=== PATIENT | male | born 1950 ===

== ENCOUNTER 2017-04-08 16:50 | Emergency (ER) | payer OTHER ==
[2017-04-08 17:46] VITALS: BP 133/70; PULSE 65; RESP 18; TEMP 97.8; O2SAT 97
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
--- NOTE | 2017-04-09 08:41 | RAD ---
PROCEDURE: Cervical Spine Radiographs. HISTORY: Pain. COMPARISON: None. FINDINGS: BONES: Alignment maintained. No fracture. Dens Intact. DISC SPACES: Degenerative changes and multilevel mild narrowing of the disc spaces noted. SOFT TISSUES: Normal. No prevertebral soft tissue swelling. OTHER FINDINGS: None. IMPRESSION: No radiographic evidence of acute fracture or subluxation. Degenerative changes.
== END 2017-04-08 19:16 | disposition home or self-care (01) ==
LOC: C.ER 16:50
DX: S13.4XXA Sprain of ligaments of cervical spine, initial encounter (principal); V43.52XA Car driver injured in collision with other type car in traffic accident, initial encounter; Y92.410 Unspecified street and highway as the place of occurrence of the external cause
CPT/HCPCS: 72040; 96372; 99283; J1885